=== PATIENT | male | born 1945 | race Caucasian/White ===

== ENCOUNTER → 2017-07-02 07:41 | Outpatient (CLI) | payer MEDICARE, OTHER ==
[2012-06-04 12:15] VITALS: BMI 24.4
== END | disposition home or self-care (01) ==
LOC: D.US 07:41
DX: I70.213 Atherosclerosis of native arteries of extremities with intermittent claudication, bilateral legs (principal); I71.4 Abdominal aortic aneurysm, without rupture; R09.89 Other specified symptoms and signs involving the circulatory and respiratory systems

== ENCOUNTER → 2017-12-27 07:13 | Outpatient (CLI) | payer MEDICARE, OTHER ==
[2012-06-04 12:15] VITALS: BMI 24.4
== END | disposition home or self-care (01) ==
LOC: D.CT 07:13
DX: I71.4 Abdominal aortic aneurysm, without rupture (principal)

== ENCOUNTER → 2018-01-01 09:29 | Outpatient (CLI) | payer MEDICARE, OTHER ==
[2012-06-04 12:15] VITALS: BMI 24.4
== END | disposition home or self-care (01) ==
LOC: D.MRI 09:29
DX: K86.9 Disease of pancreas, unspecified (principal)

== ENCOUNTER 2018-01-11 07:26 | Outpatient (CLI) | payer MEDICARE, OTHER ==
[~2018-01-11] VITALS: Ht 182.9 cm; Wt 75.5 kg
[2018-01-11 08:20] LABS: APTT 25.9 SECONDS (22.8-39.4)
[2018-01-11 08:21] LABS: BASOPHILS 0.2 % (0-2); EOSINOPHILS 2.6 % (0-7); HEMOGLOBIN 14.4 g/dL (13.5-17.5); IMMATURE GRANULOCYTES 0.2 % (0-5); INR 1.06 (0.85-1.17); MCHC 35.1 g/dL (31.0-37.0); MCV 96.9 fL (80.0-100.0); MEAN PLATELET VOLUME 9.4 fL (7.4-10.4); MONOCYTES 9.5 % (2-11); NEUTROPHILS 71.5 % (40-80); PLATELET COUNT 168 10x3/uL (130-400); PROTIME 13.4 SECONDS (11.6-15.0); RBC 4.23 10x6/uL (4.20-6.10); RDW 13.1 % (11.5-14.5); WBC 5.8 10x3/uL (4.8-10.8)
[2018-01-11 08:22] LABS: CALC OSMOLALITY 284 mosm/kg (275-300); CARBON DIOXIDE 28.6 mmol/L (21.0-32.0); CHLORIDE - SERUM 106 mmol/L (98-107); GLUCOSE 104 mg/dL (74-106); POTASSIUM - SERUM 4.6 mmol/L (3.5-5.1); SODIUM 142 mmol/L (136-145); UREA NITROGEN 18 mg/dL (7-18); eGFR NON AFRICAN AMERICAN 78 mL/min (90-120)
[2018-01-11] MEDS ORDERED: CRESTOR40 MG PO (09:00)
[2018-01-11] MEDS ORDERED: FLOMAX0.4 MG PO (09:00)
[2018-01-11] MEDS ORDERED: OMEPRAZOLE20 M1 PO (09:01)
[2018-01-11 09:09] VITALS: BP 147/64; Ht 182.9 cm; Wt 75.5 kg
== END 2018-01-11 14:10 | disposition home or self-care (01) ==
LOC: D.OPS 07:26 → D.SP 10:00 → D.OPS 14:10
PROVIDERS: Specialist
DX: K86.9 Disease of pancreas, unspecified (principal); I71.4 Abdominal aortic aneurysm, without rupture; I70.203 Unspecified atherosclerosis of native arteries of extremities, bilateral legs; Z01.812 Encounter for preprocedural laboratory examination

== ENCOUNTER 2018-01-22 05:27 | Outpatient (CLI) | payer MEDICARE, OTHER ==
[~2018-01-22 05:27] MED LIST: CRESTOR40 MG PO; FLOMAX0.4 MG PO; OMEPRAZOLE20 M1 PO
[2018-01-22 06:46] LABS: BASOPHILS 0.3 % (0-2); EOSINOPHILS 2.6 % (0-7); HEMATOCRIT 39.4 % (42.0-54.0); HEMOGLOBIN 13.5 g/dL (13.5-17.5); IMMATURE GRANULOCYTES 0.1 % (0-5); LYMPHOCYTES 11.6 % (15-50); MCH 33.3 pg (26.0-34.0); MCHC 34.3 g/dL (31.0-37.0); MEAN PLATELET VOLUME 9.4 fL (7.4-10.4); MONOCYTES 10.5 % (2-11); NEUTROPHILS 74.9 % (40-80); PLATELET COUNT 176 10x3/uL (130-400); RBC 4.06 10x6/uL (4.20-6.10); RDW 13.1 % (11.5-14.5)
[2018-01-22 07:07] LABS: CALC OSMOLALITY 283 mosm/kg (275-300); CALCIUM 10.2 mg/dL (8.5-10.1); CARBON DIOXIDE 28.8 mmol/L (21.0-32.0); CHLORIDE - SERUM 107 mmol/L (98-107); CREATININE - SERUM 0.9 mg/dL (0.6-1.3); GLUCOSE 102 mg/dL (74-106); POTASSIUM - SERUM 4.7 mmol/L (3.5-5.1); SODIUM 142 mmol/L (136-145); UREA NITROGEN 16 mg/dL (7-18); eGFR NON AFRICAN AMERICAN 88 mL/min (90-120)
[2018-01-22 07:12] VITALS: BP 152/64; BMI 22.5
[2018-01-22 07:19] LABS: APTT 25.9 SECONDS (22.8-39.4); INR 1.08 (0.85-1.17); PROTIME 13.6 SECONDS (11.6-15.0)
== END 2018-01-22 14:20 | disposition home or self-care (01) ==
LOC: D.OPS 05:27 → D.SP 08:00 → D.OPS 14:20
PROVIDERS: General Practice
DX: K86.9 Disease of pancreas, unspecified (principal); I71.4 Abdominal aortic aneurysm, without rupture; Z01.812 Encounter for preprocedural laboratory examination

== ENCOUNTER → 2018-09-17 10:30 | Outpatient (CLI) | payer MEDICARE, OTHER | END | disposition home or self-care (01) | LOC: D.US 09:30 | DX: I65.23 Occlusion and stenosis of bilateral carotid arteries (principal) ==

== ENCOUNTER → 2019-03-14 08:36 | Outpatient (CLI) | payer MEDICARE, OTHER | END | disposition home or self-care (01) | LOC: D.CT 08:36 | PROVIDERS: ATTEND Internal Medicine Cardiovascular Disease | DX: I71.4 Abdominal aortic aneurysm, without rupture (principal) ==

== ENCOUNTER 2019-05-26 10:36 | Inpatient (IN) | payer MEDICARE, OTHER ==
[~2019-05-26] VITALS: Ht 182.9 cm; Wt 73.5 kg
--- NOTE | ~2019-05-26 | OP ---
PATIENT NAME: IRAM MOSLEY MEDICAL RECORD: [id number] :45 LOCATION:D.CVI D.CV03 ADMISSION DATE:05/28/19 SURGEON: EVAN WHITE MD DATE OF OPERATION: 05/28/2019 SURGEON: Evan White MD SPECIAL EDUCATION TEACHING ASSISTANT: Gal Cameron MD ANESTHESIA: General, Dr. Omalley. OPERATION PERFORMED: 1. Endovascular stent repair of abdominal aortic aneurysm. 2. Endovascular repair with deployment of an aortobiiliac endograft, 10949. 3. Percutaneous access and closure of the femoral artery, +[id number]. 4. Angioplasty of the right external iliac artery utilizing an 8 x 40 angioplasty balloon. PREOPERATIVE DIAGNOSIS: Abdominal aortic aneurysm without rupture, ICD-10 code 171.4. POSTOPERATIVE DIAGNOSIS: Large abdominal aortic aneurysm. INDICATION FOR OPERATION: Enlarging abdominal aortic aneurysm. FINDINGS OF THE OPERATION: 1. Large abdominal aortic aneurysm. 2. The left renal artery stenosis. 3. Stenosis right external iliac artery. FLUOROSCOPY TIME: 31.19 minutes. CONTRAST: 179 mL. ESTIMATED BLOOD LOSS: Less than [address] Cameron participated in the entire procedure and accessed the right groin percutaneously with Perclose devices and left femoral artery with a 7-Iranian sheath. He also closed the right femoral artery and angioplastied the right external iliac artery. He also assisted in deployment of the device. DESCRIPTION OF PROCEDURE: After informed consent, adequate preoperative medication evaluation, the patient was brought to the operating room, placed on the table in the supine position. After induction of general endotracheal anesthesia and application of appropriate monitoring devices, the chest, abdomen, and both legs were prepped and draped in sterile field, utilizing Betadine scrub, alcohol, and Betadine solution. A Betadine-impregnated drape was also used. Utilizing ultrasound guidance, the right groin was accessed and placement of a 6-Iranian sheath. Subsequently, 2 Perclose devices were deployed and exchange made for an 8-Iranian on the ipsilateral side. The contralateral side was cannulated with the 7-Iranian sheath. Exchange were made for bilateral OPERATIVE REPORT [id number] IRAM MOSLEY stiff wires. The exchange from Glidewire to Endologix stiff wires were exchanged through the catheters. An Endologix 28 x 100 x 16 x40 AFX2 bifurcated device was loaded onto the stiff wire and advanced to the contralateral wire. It was then advanced and snared and brought through the contralateral side. The introducer sheath was then advanced under fluoroscopy until the distal limbs were above the aortic bifurcation, releasing the limbs from the graft. The entire system was pulled down on to the aortic bifurcation. Deployment of the main body was performed utilizing the control handle. Attention was then turned toward deployment of the contralateral limb by pulling the yellow limb cover then advancing the pigtail catheter over the contralateral wire until the tip made contact with the wire lock and released the wire. Next, the ipsilateral limb was deployed by pinning the inner core and retracting the AFX introducer sheath. Suprarenal endograft was then advanced and deployed. It was a 34 x 100. It was placed just below the right renal artery, which was the most caudal. The delivery system was then removed from the AFX introducer. The endograft was then ballooned utilizing a 12 x 40 mm balloon. A final arteriogram demonstrated good placement of the grafts and no endoleak. The Perclose was tightened on the ipsilateral side and the knots advanced. A third Perclose was then placed over the retained wire. An arteriogram demonstrated stenosis in the external iliac artery below the graft. This was angioplastied with an 8 x 40 balloon with a good result. An arteriogram from the contralateral side was made in the right common iliac artery with wide open flow through the external iliac artery into the profunda and superficial femoral arteries. The Angio-Seal was then deployed in the left groin with good hemostasis. The patient was given a calculated dose of protamine to reverse the heparin. Hemostasis was achieved. Sterile dressings were applied. The patient tolerated the procedure well and transferred to the CV ICU in satisfactory condition. TRANSINT:[id number] Voice Confirmation ID: [id number] DOCUMENT ID: [id number] EVAN WHITE MD CC: [id number] DICTATION DATE: 05/28/19 1127 BANK VAULT ATTENDANT: 05/28/19 1319 ADM IN [place] [id number] [place] [address]
--- NOTE | 2019-05-26 11:08 | NUR ---
WILSON APPT: TEMP 98.0; O2 98%, P70, R18, BP174/71 LEFT; BP 164/62 RIGHT
[2019-05-26] MEDS ORDERED: [UNRECOGNIZED DRUG - REMARK] INJ (11:55)
--- NOTE | 2019-05-26 12:07 | NUR ---
KATIE NOTE: NEGRITA BURGESS AT DR. WHITE'S OFFICE NOTIFIED ABG'S CALCIUM 1.39.
[2019-05-26 12:24] LABS: BASOPHILS 0.2 % (0-2); HEMOGLOBIN 12.3 g/dL (13.5-17.5); IMMATURE GRANULOCYTES 0.2 % (0-5); LYMPHOCYTES 22.2 % (15-50); MCH 31.9 pg (26.0-34.0); MCHC 34.2 g/dL (31.0-37.0); MCV 93.5 fL (80.0-100.0); MEAN PLATELET VOLUME 8.6 fL (7.4-10.4); NEUTROPHILS 62.4 % (40-80); RBC 3.85 10x6/uL (4.20-6.10); WBC 5.5 10x3/uL (4.8-10.8)
[2019-05-26 12:26] LABS: PLATELET COUNT 213 10x3/uL (130-400)
[2019-05-26 12:37] LABS: ALBUMIN 3.4 g/dL (3.4-5.0); ANION GAP 10.5 mmol/L (8-16); APPEARANCE HAZY (CLEAR); BACTERIA FEW /hpf (NONE SEEN); BILIRUBIN NEGATIVE (NEGATIVE); BILIRUBIN - TOTAL 0.3 mg/dL (0.2-1.3); CALCIUM 10.2 mg/dL (8.5-10.1); CARBON DIOXIDE 29.1 mmol/L (21.0-32.0); COLOR YELLOW (YELLOW); CREATININE - SERUM 1.1 mg/dL (0.6-1.3); EPITHELIAL CELLS 0-5 /hpf (0-5); GLUCOSE NEGATIVE (NEGATIVE); KETONE NEGATIVE (NEGATIVE); NITRITE NEGATIVE (NEGATIVE); POTASSIUM - SERUM 3.6 mmol/L (3.5-5.1); PROTEIN NEGATIVE (NEGATIVE); PROTEIN - SERUM 7.5 g/dL (6.4-8.2); UROBILINOGEN NORMAL (NORMAL); WHITE CELLS - URINE 0-5 /hpf (0-5)
[2019-05-26 12:45] LABS: APTT 27.4 SECONDS (22.8-39.4); INR 1.11 (0.85-1.17); PROTIME 13.8 SECONDS (11.6-15.0)
[2019-05-28] VITALS (50 sets, daily range): BP systolic 86–168; BP diastolic 27–454; BMI 24.7; BMI 22.0
[2019-05-28 08:24] LABS: APPEARANCE HAZY (CLEAR); BILIRUBIN NEGATIVE (NEGATIVE); COLOR YELLOW (YELLOW); GLUCOSE NEGATIVE (NEGATIVE); KETONE NEGATIVE (NEGATIVE); NITRITE NEGATIVE (NEGATIVE); PROTEIN TRACE mg/dL (NEGATIVE); UROBILINOGEN NORMAL (NORMAL)
[2019-05-28 08:25] LABS: BACTERIA FEW /hpf (NONE SEEN); EPITHELIAL CELLS OCC /hpf (0-5); MUCUS <1+ /lpf (NONE SEEN); RED CELLS - URINE 0-5 /hpf (0-5); WHITE CELLS - URINE RARE /hpf (0-5)
--- NOTE | 2019-05-28 13:50 | NUR ---
PLACED ON BEDPAN PER REQUEST
--- NOTE | 2019-05-28 14:22 | OP ---
PATIENT NAME: IRAM MOSLEY MEDICAL RECORD: [id number] :45 LOCATION:DKOLE D.CV03 ADMISSION DATE:05/28/19 SURGEON: TOBY MARK MD DATE OF OPERATION: 05/28/2019 SURGEON: Toby Mark MD PROCEDURE IN DETAIL: At the beginning of this procedure, ultrasound was used to obtain common femoral artery access bilaterally using micropuncture technique. On the left, easy access was obtained and a 7-Mosotho sheath was inserted, but on the right the micropuncture needle initially went in a side-branch requiring the use of fluoroscopy, and after the micropuncture sheath was placed eventually a Glidewire instead of the normal J-wire prior to placing the ProGlides for pre-deployment. In placing the ProGlides, the initial medial device would not easily pull back over the posterior calcification, but eventually both medial and the lateral ProGlide were deployed. At the conclusion of the case, both ProGlides were closed over a wire, but there was still bleeding, so a third ProGlide was deployed without difficulty. All 3 ProGlides were locked down and iliac arteriogram was performed revealing stenosis at the closure site. From left groin, a crossing catheter was used. The right iliac was selected and a wire was placed through the lesion, then dilatation first. Using a 6-mm balloon, then an iliac angiogram revealing persistent stenosis at a side branch, so an 8-mm balloon was used with resultant good dilatation. The left side was closed with an Angio-Seal. TRANSINT:[id number] Voice Confirmation ID: [id number] DOCUMENT ID: [id number] TOBY MARK MD at 1422 CC: [id number] DICTATION DATE: 05/28/19 1234 GLOBAL ACCOUNT DIRECTOR: 05/28/19 1320 ADM IN [place] [id number] [place] [address]
--- NOTE | 2019-05-28 17:18 | MORECARE ---
CASE MANAGEMENT DISCHARGE SUMMARY PATIENT: IRAM MOSLEY RAY UNIT: [id number] ADM DATE: 05/28/19 AGE: 74 : 45 SEX: M [facility] AUTHOR: MARIANA ALVES PHYSICIAN: REFERRING PHYSICIAN: EVAN WHITE MD DATE OF SERVICE: 05/28/19 Discharge Plan Patient Name: IRAM MOSLEY [facility] [facility] 1945 Planned Disposition: Home Anticipated Discharge Date: Discharge Date: Expected LOS: Initial Reviewer: [email or web address] Initial Review Date: 05/28/2019 Generated: 05/28/19 6:17 pm DCPIA - Discharge Planning Initial Assessment Updated by [email or web address]: Nimo Horowitz on 05/28/19 5:17 pm * Is the patient Alert and Oriented? Yes * How many steps to enter\exit or inside your home? * PCP DR. Edin HUDSON * Pharmacy [facility] * Preadmission Environment Home with Family * ADLs Independent * Equipment Walker * List name and contact numbers for known caregivers / representatives who currently or will assist patient after discharge: BETTY MOSLEY - - [phone] * Verbal permission to speak to the caregivers and representatives has been obtained from the patient. Yes * Community resources currently utilized None * Additional services required to return to the preadmission environment? No * Can the patient safely return to the preadmission environment? Yes * Has this patient been hospitalized within the prior 30 days at any hospital? No Patient Name: IRAM MOSLEY Page [id number] at 1718 All edits/amendments must be made on the electronic document DICTATION DATE: 05/28/191716 DOCTOR OF PHARMACY: ADDY 05/28/191716 RPT#: [id number] CT DATE: STATUS: ADM IN [facility] [address] [place] [address] END OF REPORT
--- NOTE | 2019-05-28 17:25 | MORECARE ---
CASE MANAGEMENT DISCHARGE SUMMARY PATIENT: IRAM MOSLEY RAY UNIT: [id number] ADM DATE: 05/28/19 AGE: 74 : 45 SEX: M ROOM/BED: D[facility] AUTHOR: JOSELYN,DOC PHYSICIAN: REFERRING PHYSICIAN: EVAN WHITE MD DATE OF SERVICE: 05/28/19 Discharge Plan Patient Name: IRAM MOSLEY Facility: [facility]:[place] : 1945 Planned Disposition: Home Anticipated Discharge Date: Discharge Date: Expected LOS: Initial Reviewer: [email or web address] Initial Review Date: 05/28/2019 Generated: 05/28/19 6:24 pm Comments DCP- Discharge Planning Updated by [email or web address]: Nimo Horowitz on 05/28/19 4:[address] Patient Name: IRAM MOSLEY Admission Status: Elective Accout number: [id number] Admission Date: 05-28-2019 : 1945 Admission Diagnosis: Attending: EVAN WHITE Current LOS: 1 Anticipated DC Date: Planned Disposition: Home Primary Insurance: MEDICARE A & B Discharge Planning Comments:CM met with patient and spouse (Mariah) at bedside after explaining CM role and obtaining verbal consent. Patient lives at home with his Mariah and plans to return there upon discharge. Patient feels this would be a safe discharge. CM discussed availability / needs of home health and medical equipment. Patient denies any discharge needs at this time. Patient states he will have his drive him home upon discharge. CM will continue to follow and assist as needed with discharge planning / needs. Wafer Fabrication Operator: Nimo Horowitz DCPIA - Discharge Planning Initial Assessment Updated by [email or web address]: Nimo Horowitz on 05/28/19 5:17 pm * Is the patient Alert and Oriented? Yes * How many steps to enter\exit or inside your home? * PCP DR. Edin HUDSON * Pharmacy [facility] * Preadmission Environment Home with Family * ADLs Independent * Equipment Walker * List name and contact numbers for known caregivers / representatives who currently or will assist patient after discharge: MARIAH MOSLEY - - [phone] * Verbal permission to speak to the caregivers and representatives has been obtained from the patient. Yes * Community resources currently utilized None * Additional services required to return to the preadmission environment? No * Can the patient safely return to the preadmission environment? Yes * Has this patient been hospitalized within the prior 30 days at any hospital? No Last DP export: 05/28/19 4:18 pm Patient Name: IRAM MOSLEY Page [id number] at 1725 All edits/amendments must be made on the electronic document DICTATION DATE: 05/28/191723 BROOM MAKER: ADDY 05/28/191723 RPT#: [id number] DC DATE: STATUS: ADM IN [facility] [address] [place] [address] END OF REPORT
--- NOTE | 2019-05-28 19:10 | NUR ---
Received patient resting in bed with eyes closed, assessment completed per flowsheet. Patient AO x4, answers appropriately/follows instructions. S1/S2 noted NSR on telemetry, rythmic and regular. Breathing is shallow on 3L via NC with O2 sat 97%, lung sounds clear bilateral upper and mid with diminished lower. Abdomen is round/soft with bowel sounds active x4, non-tender. Criticore secured, clear/yellow urine noted. Bilateral groin incision dressing CDI, soft to palpation with no bruising noted. Upper pulses palpable with lower pulses weak, skin warm/dry with cap refill < 3 sec. METER TESTER in use for pain mgmt, Repositioned for comfort, see flowsheet for details. All VSS and will continue to monitor.
--- NOTE | 2019-05-28 23:00 | NUR ---
Reassessment completed per flowsheet, no changes noted from previous assessment. Upper pulses palpable with lower pulses weak, skin warm/dry with cap refill < 3 sec. Bilateral groin incision dressing CDI, no bleeding/bruising noted. BROACHING MACHINE SET UP OPERATOR in use, denies further needs. See flowsheet for details, all VSS and will continue to monitor.
[2019-05-29] VITALS (51 sets, daily range): BP systolic 89–146; BP diastolic 29–68
--- NOTE | 2019-05-29 02:49 | NUR ---
Reassessment completed per flowsheet, no changes noted from previous assessment. Bilateral groin incision dressing CDI, no bleeding/bruising noted. Upper pulses palpable with lower pulses weak, cap refill < 3 sec with skin warm/dry. Denies pain or other needs at this time, see flowsheet for details. All VSS and will continue to monitor.
[2019-05-29 06:25] LABS: CALC OSMOLALITY 277 mosm/kg (275-300); CALCIUM 8.3 mg/dL (8.5-10.1); CARBON DIOXIDE 27.5 mmol/L (21.0-32.0); CHLORIDE - SERUM 102 mmol/L (98-107); POTASSIUM - SERUM 4.1 mmol/L (3.5-5.1); SODIUM 136 mmol/L (136-145); UREA NITROGEN 21 mg/dL (7-18); eGFR NON AFRICAN AMERICAN 78 mL/min (90-120)
[2019-05-29 06:36] LABS: GLUCOSE 151 mg/dL (74-106)
[2019-05-29 06:42] LABS: HEMATOCRIT 25.6 % (42.0-54.0); HEMOGLOBIN 8.9 g/dL (13.5-17.5); MCH 31.6 pg (26.0-34.0); MCHC 34.8 g/dL (31.0-37.0); MCV 90.8 fL (80.0-100.0); MEAN PLATELET VOLUME 8.7 fL (7.4-10.4); RBC 2.82 10x6/uL (4.20-6.10); RDW 12.8 % (11.5-14.5); WBC 11.4 10x3/uL (4.8-10.8)
--- NOTE | 2019-05-29 07:00 | NUR ---
REC'D REPORT AND RESUMED CARE, AAO, VSS, CONTINUES ON PRESSORS, DENIES PAIN, OOB TO CHAIR WITH STAND BY ASSIST X2, TOLERATED TRANSFER WITHOUT DIFFICULTY, ASSESSMENT COMPLETED PER FLOWSHEET, AWAITING TO SEE MD, NO OTHER NEEDS AT THIS TIME, CALL LIGHT IN REACH
--- NOTE | 2019-05-29 09:00 | NUR ---
MORNING MEDS GIVEN PER JAN FLOWSHEET
--- NOTE | 2019-05-29 11:40 | NUR ---
DC'D MEGHA NITRO TITRATED DOWN TO 5 CC/HR/16.647 MCG/HR, PER DR MARK
--- NOTE | 2019-05-29 14:35 | NUR ---
CONTINUES TO SIT UP IN CHAIR, HERE FOR VISIT, NO NEEDS AT THIS TIME
--- NOTE | 2019-05-29 15:00 | NUR ---
NITRO AND CLEVEPREX DC'D, BP STABLE SEE FLOWSHEET, ASSESSMENT COMPLETED PER FLOWSHEET, NO ACUTE CHANGE FROM PREVIOUS
--- NOTE | 2019-05-29 16:30 | NUR ---
FRIENDS AT BEDSIDE, PATIENT REC'D NEWS OF OTHER GOOD FRIEND DYING TODAY, TEARFUL, EASILY CONSOLED, NO NEEDS A THIS TIME
--- NOTE | 2019-05-29 16:45 | NUR ---
AMBULATED 250 FEET WITH STAND BY ASSIST, TOELRATED WITHOUT DIFFICULTY
--- NOTE | 2019-05-29 17:00 | NUR ---
DINNER TRAY TO CHAIRSIDE, INDEPENDENT WITH SET UP AND EATING
--- NOTE | 2019-05-29 18:05 | NUR ---
BACK TO BED WITH ASSIST, TOLERATED TRANSFER WITHOUT DIFFICULTY
--- NOTE | 2019-05-29 19:26 | NUR ---
BEDSIDE SHIFT REPORT GIVEN BY DEPARTING RN. PT LAYING IN BED ASLEEP. AAOX4. PERRLA. DENIES ANY PAIN OR NEEDS AT THIS TIME. LEFT SUBCLAVIAN CENTRAL LINE SALINE LOCKED. BILATERAL GROIN DRESSINGS INTACT. RT SIDE GROIN DRESSING HAS QUARTER SIZED POCKET OF BLOOD IN DRESSING WITH SMALL BRUISING SURROUNDNIG IT. MARKED FOR GROWTH. BILATERAL PEDAL PULSES POSITIVE DOPPLER. ASSESSMENT COMPLETE. SEE FLOWSHEET FOR DETAILS.
--- NOTE | 2019-05-29 21:06 | NUR ---
HS MEDS GIVEN. REFUSED ANY AND ALL STOOL SOFTENERS. FRESH ICE WATER PROVIDED.
--- NOTE | 2019-05-29 22:54 | NUR ---
REASSESSMENT COMPLETE. NO NEW CHANGES NOTED. ASLEEP SHOWING NO SS OF DISTRESS. REPOSITIONS SELF. DENIES ANY PAIN OR NEEDS. VSS. SAFETY MEASURES IN PLACE. CBIR.
[2019-05-30] VITALS (27 sets, daily range): BP systolic 114–169; BP diastolic 43–114; Ht 182.9 cm; Wt 73.5 kg
--- NOTE | 2019-05-30 01:58 | NUR ---
CHG BATH GIVEN. LINENS CHANGED. TOLERATED WELL.
--- NOTE | 2019-05-30 03:23 | NUR ---
REASSESSMENT COMPLETE. VSS. PT LAYING IN BED ASLEEP. NO CHANGES NOTED IN PT CONDITION. SAFETY MEASURES IN PLACE. CBIR.
[2019-05-30 05:44] LABS: BASOPHILS 0.3 % (0-2); EOSINOPHILS 1.9 % (0-7); HEMATOCRIT 23.9 % (42.0-54.0); IMMATURE GRANULOCYTES 0.1 % (0-5); LYMPHOCYTES 16.3 % (15-50); MCH 31.3 pg (26.0-34.0); MCHC 33.5 g/dL (31.0-37.0); MEAN PLATELET VOLUME 8.9 fL (7.4-10.4); MONOCYTES 10.2 % (2-11); NEUTROPHILS 71.2 % (40-80); RBC 2.56 10x6/uL (4.20-6.10); RDW 13.3 % (11.5-14.5)
[2019-05-30 05:46] LABS: MCV 93.4 fL (80.0-100.0); PLATELET COUNT 132 10x3/uL (130-400); WBC 7.3 10x3/uL (4.8-10.8)
[2019-05-30 06:02] LABS: CALC OSMOLALITY 289 mosm/kg (275-300); CALCIUM 8.6 mg/dL (8.5-10.1); CHLORIDE - SERUM 107 mmol/L (98-107); GLUCOSE 123 mg/dL (74-106); POTASSIUM - SERUM 3.7 mmol/L (3.5-5.1); SODIUM 144 mmol/L (136-145); UREA NITROGEN 19 mg/dL (7-18); eGFR NON AFRICAN AMERICAN 78 mL/min (90-120)
--- NOTE | 2019-05-30 07:00 | NUR ---
REC'D REPORT AND RESUMED CARE, AAO, VSS, DENIES PAIN, RIGHT GROIN WITH FIFTY CENT SIZE BLOOD POOLING UNNDER OPSITE DRESSING, 6 INCH HEMATOMA NOTED, SOFT WHEN PALPATED, LEFT GROIN WITH MINX COLOSRE DEVICE, DRESSING CDI, B/L FEET DOPPLERED WITH + PULSES NOTED, ASSESSMENT COMPLETED PER FLOWSHEET, CALL LIGHT IN REACH, VOICES NO NEEDS AT THIS TIME
--- NOTE | 2019-05-30 07:30 | NUR ---
DRESSING CHANGE COMPLETED TO RIGHT GROIN, TEGADERM DRESSING PLACED OVER GAUZE
--- NOTE | 2019-05-30 08:00 | NUR ---
OOB TO CHAIR FOR BREAKFAST, TOLERATED TRANSFER WITHOUT DIFFICULTY
--- NOTE | 2019-05-30 10:15 | NUR ---
AMUBULATED WITH PT ASSIST, TOLERATED WITHOUT DYSPNEA, STABLE GAIT NOTED
--- NOTE | 2019-05-30 11:00 | NUR ---
REFUSED BATH, IN HOPES OF BEING DISCHARGED HOME TODAY
--- NOTE | 2019-05-30 11:12 | NUR ---
PC TO [facility], REVIEW OF RECORD BACK TO 2016, PATIENT DOES NOT HAVE ANY SCRIPTS FOR BLOOD PRESSURE MEDS, PATIENTS ALSO UNABLE TO FIND MEDCIATION BOTTLE AT HOME
--- NOTE | 2019-05-30 16:15 | NUR ---
UNIT # 1 PRBC INITIATED, VSS PT AAO, NO SIGNS OF DISTRESS
--- NOTE | 2019-05-30 18:20 | NUR ---
UNIT # 1 PRBC COMPLETED, LINE FLUSHED WITH 50 CC NS
--- NOTE | 2019-05-30 18:30 | NUR ---
UNIT #2 PRBC INTITATED, VSS, NO SIGNS OF DISTRESS NOTED
--- NOTE | 2019-05-30 19:23 | NUR ---
PT RECEIVED UP IN BEDSIDE CHAIR. NO S/S OF DISTRESS. VSS. RECEIVING SECOND OF 2 UNITS OF PRBC. TOLERATING WELL. NO NEEDS MADE KNOWN. CALL LIGHT IN REACH. WILL CONTINUE TO OBSERVE
--- NOTE | 2019-05-30 21:35 | NUR ---
PRBC TRANSFUSION COMPLETED. PT UP TO BATHROOM AND RETURNED TO BED. NO S/S OF DISTRESS. NO NEEDS MADE KNOWN. CALL LIGHT IN REACH. WILL CONTINUE TO OBSERVE.
[2019-05-31] VITALS (28 sets, daily range): BP systolic 113–187; BP diastolic 46–69
--- NOTE | 2019-05-31 00:05 | NUR ---
REASSESSMENT COMPLETED SEE FLOW SHEET. PT OVER FILLED URINAL WITH URNINE ON GOWN AND LINENS. LINENS CHANGED AND CHG BATH PROVIDED. PT TOLERATED WELL. PT IN BED AT THIS TIME. CALL LIGHT IN REACH. WILL CONTINUE TO OBSERVE.
--- NOTE | 2019-05-31 02:38 | NUR ---
B/P CONTINUOUSLY ABOVE PARAMETERS WITH PRM APPRESSOLINE GIVEN WITH NO CHANGES, PRN NITRO STARTED AT 0205. WILL CONTINUE TO OBSERVE.
--- NOTE | 2019-05-31 03:46 | NUR ---
PT RESTING WITH EYES CLOSED AND CHEST RISING. EASILY AWOKEN TO VERBAL STIMULI. REASSESSMENT COMPLETED. SEE FLOW SHEET. CONTINUES NITRO DRIP. WILL CONTINUE TO OBSERVE.
[2019-05-31 06:24] LABS: CALC OSMOLALITY 284 mosm/kg (275-300); CALCIUM 9.7 mg/dL (8.5-10.1); CARBON DIOXIDE 28.3 mmol/L (21.0-32.0); CHLORIDE - SERUM 105 mmol/L (98-107); GLUCOSE 126 mg/dL (74-106); POTASSIUM - SERUM 3.4 mmol/L (3.5-5.1); SODIUM 141 mmol/L (136-145); UREA NITROGEN 19 mg/dL (7-18); eGFR NON AFRICAN AMERICAN 78 mL/min (90-120)
--- NOTE | 2019-05-31 06:37 | NUR ---
DR MARK INFORMED OF PT STATUS. ORDER TO GIVE ANTIHYPERTENSIVE EARLY AND WILL ADJUST DURING AM ROUNDS.
[2019-05-31 06:39] LABS: BASOPHILS 0.1 % (0-2); EOSINOPHILS 2.2 % (0-7); IMMATURE GRANULOCYTES 0.3 % (0-5); LYMPHOCYTES 14.6 % (15-50); MCH 31.1 pg (26.0-34.0); MCHC 34.8 g/dL (31.0-37.0); MEAN PLATELET VOLUME 9.2 fL (7.4-10.4); NEUTROPHILS 73.8 % (40-80); RDW 14.5 % (11.5-14.5); WBC 7.8 10x3/uL (4.8-10.8)
[2019-05-31 06:40] LABS: HEMATOCRIT 32.5 % (42.0-54.0); HEMOGLOBIN 11.3 g/dL (13.5-17.5); MCV 89.5 fL (80.0-100.0); PLATELET COUNT 160 10x3/uL (130-400); RBC 3.63 10x6/uL (4.20-6.10)
--- NOTE | 2019-05-31 07:00 | NUR ---
REC'D UP IN CHAIR, VSS, RIGHT DP 2+, RT GROIN SITE W/ HEMATOMA- FIRM/BRUISING. DENIES PAIN OR DISCOMFORT AT THIS TIME.
--- NOTE | 2019-05-31 07:30 | NUR ---
ASSESSED. PLEASANT- WANTS TO EAT AND GO HOME.
--- NOTE | 2019-05-31 09:00 | NUR ---
IN AND UPDATED.
--- NOTE | 2019-05-31 11:00 | NUR ---
DR MARK IN- ORDERS REC'D.
[2019-05-31] MEDS ORDERED: HEMOCYTE PLUS C1 CAP PO (11:35)
[2019-05-31] MEDS ORDERED: ASPIRIN EC81 M1 PO (11:36)
[2019-05-31] MEDS ORDERED: LISINOPRIL2.5 MG PO (11:36)
[2019-05-31] MEDS ORDERED: LOPRESSOR25 MG PO (11:37)
--- NOTE | 2019-05-31 12:25 | NUR ---
LEFT CVL REMOVED- MANUAL PRESSURE HELD X 5 MIN AND DRSG APPLIED. CATHETER TIP INTACT, NO BRUISING/HEMATOMA, NO S/S INFECTION.
--- NOTE | 2019-05-31 13:20 | NUR ---
DISCHARGE INSTRUCTIONS GIVEN AND DC'D HOME VIA W/C ACCOMPANIED BY .
--- NOTE | 2019-06-02 08:50 | MORECARE ---
CASE MANAGEMENT DISCHARGE SUMMARY PATIENT: IRAM MOSLEY RAY UNIT: [id number] ADM DATE: 05/28/19 AGE: 74 : 45 SEX: M ROOM/BED: D.[facility] AUTHOR: JOSELYN,DOC PHYSICIAN: REFERRING PHYSICIAN: EVAN WHITE MD DATE OF SERVICE: 06/02/19 Discharge Plan Patient Name: IRAM MOSLEY Facility: [facility]:[place] : 1945 Planned Disposition: Home Anticipated Discharge Date: Discharge Date: 05/31/2019 Expected LOS: Initial Reviewer: [email or web address] Initial Review Date: 05/28/2019 Generated: 06/02/19 9:50 am DCP- Discharge Planning Updated by [email or web address]: Nimo Horowitz on 05/28/19 4:[address] Patient Name: IRAM MOSLEY Admission Status: Elective Accout number: [id number] Admission Date: 05-28-2019 : 1945 Admission Diagnosis: Attending: EVAN WHITE Current LOS: 1 Anticipated DC Date: Planned Disposition: Home Primary Insurance: MEDICARE A & B Discharge Planning Comments:CM met with patient and spouse (Mariah) at bedside after explaining CM role and obtaining verbal consent. Patient lives at home with his Mariah and plans to return there upon discharge. Patient feels this would be a safe discharge. CM discussed availability / needs of home health and medical equipment. Patient denies any discharge needs at this time. Patient states he will have his drive him home upon discharge. CM will continue to follow and assist as needed with discharge planning / needs. Ballet Dancer: Nimo Horowitz DCPIA - Discharge Planning Initial Assessment Updated by [id number]: Nimo Horowitz on 05/28/19 5:17 pm * Is the patient Alert and Oriented? Yes * How many steps to enter\exit or inside your home? * PCP DR. Edin HUDSON * Pharmacy [facility] * Preadmission Environment Home with Family * ADLs Independent * Equipment Walker * List name and contact numbers for known caregivers / representatives who currently or will assist patient after discharge: MARIAH MOSLEY - - [phone] * Verbal permission to speak to the caregivers and representatives has been obtained from the patient. Yes * Community resources currently utilized None * Additional services required to return to the preadmission environment? No * Can the patient safely return to the preadmission environment? Yes * Has this patient been hospitalized within the prior 30 days at any hospital? No Last DP export: 05/28/19 4:24 pm Patient Name: IRAM MOSLEY Page 07164 at 0850 All edits/amendments must be made on the electronic document DICTATION DATE: 06/02/1950 FUSION ANALYST: ADDY 06/02/19 0850 RPT#: [id number] DC DATE:05/31/19 STATUS: DIS IN [facility] [address] [place] [address] END OF REPORT
== END 2019-05-31 13:20 | disposition home or self-care (01) | DRG 269 ==
LOC: D.CVICU 05-28 05:00 → D.SDCHOLD 05-28 05:00 → D.CVICU 05-28 11:53
PROVIDERS: Thoracic Surgery (Cardiothoracic Vascular Surgery); ADMIT Internal Medicine Cardiovascular Disease; ATTEND Internal Medicine Cardiovascular Disease
PROC: 047 Lower Arteries, Dilation (ICD-10-PCS; 2019-05-28)
PROC: 04V03DZ Restriction of Abdominal Aorta with Intraluminal Device, Percutaneous Approach (ICD-10-PCS; principal; 2019-05-28 07:30)
DX: I71.4 Abdominal aortic aneurysm, without rupture (principal); D62 Acute posthemorrhagic anemia; I70.1 Atherosclerosis of renal artery; I77.1 Stricture of artery; I10 Essential (primary) hypertension; R00.1 Bradycardia, unspecified

== ENCOUNTER → 2019-06-04 13:40 | Outpatient (CLI) | payer MEDICARE, OTHER ==
[2019-05-30 10:20] VITALS: BMI 21.9
[~2019-06-04 13:40] MED LIST changes: +ASPIRIN EC81 M1 PO; +HEMOCYTE PLUS C1 CAP PO; +LISINOPRIL2.5 MG PO; +LOPRESSOR25 MG PO; +[UNRECOGNIZED DRUG - REMARK] INJ
[2019-06-04 14:23] LABS: CALC OSMOLALITY 281 mosm/kg (275-300); CHLORIDE - SERUM 104 mmol/L (98-107); GLUCOSE 121 mg/dL (74-106); POTASSIUM - SERUM 3.9 mmol/L (3.5-5.1); SODIUM 140 mmol/L (136-145); UREA NITROGEN 18 mg/dL (7-18); eGFR NON AFRICAN AMERICAN 78 mL/min (90-120)
[2019-06-04 14:30] LABS: HEMATOCRIT 33.6 % (42.0-54.0); HEMOGLOBIN 11.4 g/dL (13.5-17.5); MCH 31.7 pg (26.0-34.0); MCHC 33.9 g/dL (31.0-37.0); MCV 93.3 fL (80.0-100.0); MEAN PLATELET VOLUME 9.2 fL (7.4-10.4); RBC 3.6 10x6/uL (4.20-6.10); RDW 13.6 % (11.5-14.5); WBC 6.6 10x3/uL (4.8-10.8)
== END | disposition home or self-care (01) ==
LOC: D.LAB 13:40
PROVIDERS: ATTEND Thoracic Surgery (Cardiothoracic Vascular Surgery)
DX: Z98.890 Other specified postprocedural states (principal)

== ENCOUNTER 2019-11-04 08:28 | Outpatient (CLI) | payer MEDICARE, OTHER ==
[~2019-11-04] VITALS: Ht 182.9 cm; Wt 83.2 kg
[2019-11-04 09:12] VITALS: BP 167/73; Ht 182.9 cm; Wt 83.2 kg
[2019-11-04] MEDS ORDERED: LISINOPRIL5 MG PO (09:25)
--- NOTE | 2019-11-04 19:24 | NUR ---
IV REMOVED AT 1700
== END 2019-11-04 17:00 | disposition home or self-care (01) ==
LOC: D.OPS 08:28
PROVIDERS: ATTEND Internal Medicine Cardiovascular Disease
DX: I71.4 Abdominal aortic aneurysm, without rupture (principal)

== ENCOUNTER 2019-12-16 07:04 | Outpatient (CLI) | payer MEDICARE, OTHER ==
[~2019-12-16] VITALS: Ht 182.9 cm; Wt 83.2 kg
--- NOTE | ~2019-12-16 | HEMODYNAMI ---
PATIENT:IRAM MOSLEY MEDICAL RECORD: [id number] : 45 [id number] ADMISSION DATE: 12/16/19 Generatedon:12/16/201910:31 Patient name: IRAM MOSLEY Patient #: [id number] SSN: : 1945 Date of study: 12/16/2019 Page: Of Hemodynamic Procedure Report Patient Data Patient Demographics Procedure consent was obtained First Name: IRAM Gender: Male Last Name: DIMITRI : 1945 Middle Initial: RAY Age: 74 year(s) Patient #: [id number] Race: Unknown Additional ID: [id number] Contact details Address: [address] [place] [address] State: [place] City: [place] Zip code: [address] Past Medical History Allergies: No known allergies Admission Admission Data Admission Date: 12/16/2019 Admission Time: 7:04 Procedure Procedure Types Cath Procedure Peripheral Cath Diagnostic Procedure Abd/Extremity Renal Procedure Description Procedure Date Procedure Date: 12/16/2019 Procedure Start Time: 9:20 Procedure Staff Name Function Dean Purcell RT Scrub Iglesia Lee MD Performing Physician Anisa Nelson RN Nurse SLIME AGUIRRE RT Monitor Procedure Data Cath Procedure Fluoroscopy Diagnostic fluoroscopy Total fluoroscopy Time: time: 13.7 min 13.7 min Diagnostic fluoroscopy Total fluoroscopy dose: 506 dose: 506 mGy mGy Contrast Material Contrast Material Type Amount (ml) Isovue 300 85 Entry Location Entry Primary Successful Side Size Upsize Upsize Entry Closure Succes sful Closure Location (Fr) 1 (Fr) 2 (Fr) Remarks Device Remarks Femoral Right 6 Fr artery Long Femoral Right 6 Fr Mynx artery Short [employer] 6Fr/7Fr Diagnostic catheters Device Type Used For End Catheter Placement Merit ULTRA BOLUS FLUSH 5Fr 65CM catheter ([id number]) Angiodynamics SOS OMNI 2 NON B 5FR 65CM catheter ([id number]) Procedure Medications Medication Administration Route Dosage Heparin Flush Bag added to field 3 bags (1000units/500ml NS) Lidocaine 1% added to field 20 Versed I.V. 1 mg Fentanyl I.V. 50 mcg Heparin Bolus I.V. 5000 units Versed I.V. 1 mg Fentanyl I.V. 50 mcg Versed I.V. 1 mg Fentanyl I.V. 50 mcg Hydralizine I.V. 10 mg Fentanyl I.V. 50 mcg Versed I.V. 1 mg Hemodynamics Rest Heart Rate: 64 (bpm) Snapshots Pre Cath Intra NCS Post Cath Vital Signs Time Heart Resp SPO2 etCO2 NIBP (mmHg) Rhythm Pain Sedation Rate (ipm) (%) (mmHg) Status Level (bpm) 8:59:47 62 20 100 32.9 No Cuff NSR 0 (11) 10(A) , No pain 9:02:51 65 22 100 24.5 149/136(148) NSR 0 (11) 10(A) , No pain 9:07:50 62 17 100 29.8 Measuring NSR 0 (11) 10(A) , No pain 9:08:12 62 18 100 29.8 180/75(141) NSR 0 (11) 10(A) , No pain 9:12:45 60 20 100 29.1 175/67(142) NSR 0 (11) 10(A) , No pain 9:17:15 64 20 100 28.3 171/66(121) NSR 0 (11) 8(A) , No pain 9:20:50 64 20 100 30.6 162/74(130) NSR 0 (11) 8(A) , No pain 9:25:15 63 17 100 30.6 160/71(127) NSR 0 (11) 8(A) , No pain 9:29:39 67 17 100 23 162/70(129) NSR 0 (11) 8(A) , No pain 9:34:03 65 16 100 0 166/73(136) NSR 0 (11) 8(A) , No pain 9:38:29 63 16 100 10.7 175/69(132) NSR 0 (11) 8(A) , No pain 9:42:57 64 27 100 29.9 177/74(143) NSR 0 (11) 8(A) , No pain 9:47:26 64 17 100 30.6 169/67(129) NSR 0 (11) 8(A) , No pain 9:51:50 64 17 100 10.7 162/67(127) NSR 0 (11) 8(A) , No pain 9:56:16 64 34 100 23.7 172/69(138) NSR 0 (11) 8(A) , No pain 10:00:39 73 20 100 16 183/92(141) NSR 0 (11) 8(A) , No pain 10:05:05 72 21 100 0 192/89(150) NSR 0 (11) 8(A) , No pain 10:08:28 77 22 100 27.5 199/90(148) NSR 0 (11) 8(A) , No pain 10:12:41 82 20 100 26.8 196/84(144) NSR 0 (11) 8(A) , No pain 10:17:08 83 20 100 12.2 184/88(132) NSR 0 (11) 8(A) , No pain 10:21:32 80 11 100 25.2 184/78(122) NSR 0 (11) 8(A) , No pain 10:26:02 83 24 100 16 164/71(125) NSR 0 (11) 8(A) , No pain Medications Time Medication Route Dose Verified Delivered Reason Notes Ef fectiveness by by 9:16:11 Heparin Flush added 3 Iglesia Parekh used for Bag to bags Rosa Lee procedure (1000units/500ml field MD AVILEZ NS) 9:16:24 Lidocaine 1% added 20ml Iglesia Parekh for local to vial Rosa Lee anesthetic field MD AVILEZ 9:17:07 Versed I.V. 1 mg Iglesia Lange for sedation Rosa Nelson RN, MD 9:17:19 Fentanyl I.V. 50 Iglesia Lange for sedation mcg Rosa Nelson RN, MD 9:26:37 Heparin Bolus I.V. 5000 Iglesia Lange Per units Rosa Nelson RN physician 9:32:27 Versed I.V. 1 mg Iglesia Lange for sedation Rosa Nelson RN, MD 9:32:34 Fentanyl I.V. 50 Iglesia Lange for sedation mcg Rosa Nelson RN, MD 9:57:14 Versed I.V. 1 mg Iglesia Lange for sedation Rosa Nelson RN, MD 9:57:22 Fentanyl I.V. [address] sedation [facility] Rosa Nelson RN, MD 10:09:42 Hydralizine I.V. 10 mg Iglesia Lange for Rosa sue MD 10:11:18 Fentanyl I.V. [address] sed[address] [facility] Rosa Nelson RN, MD 10:12:52 Versed I.V. 1 mg Iglesia Lange for sedation Rosa Nelson RN, MD Procedure Log Time Note 8:50:20 Anisa Nelson RN sent for patient. Start room use. 8:50:30 Time tracking: Regular hours (M-F 7:00 - 5:00) 8:50:35 Plan of Care:Hemodynamics will remain stable., Cardiac rhythm will remain stable., Comfort level will be maintained., Respiratory function will remain adequate., Patient/ family verbilizes understanding of procedure., Procedure tolerated without complication., Recovers from procedure without complications.. 8:50:39 Patient received from Outpatients to IR Alert and oriented. Tansferred to table in Supine position. 8:50:42 Signed procedure consent form obtained from patient. 8:50:44 Correct patient and procedure confirmed by team. 8:50:45 Full Disclosure recording started 8:50:46 - 8:50:50 Pre-procedure instructions explained to patient. 8:50:50 H&P Date Dictated: 12/16/2019 H&P Addendum completed by physician on day of procedure. (MUST COMPLETE FOR ALL OUTPATIENTS). 8:50:51 Pre-op teaching completed and patient verbalized understanding. 8:50:55 Use device set IR Diagnostic 8:50:56 ACIST Manifold (79535) opened to sterile field. 8:50:56 ACIST Hand Control (84728) opened to sterile field. 8:50:56 ACIST Syringe (57520) opened to sterile field. 8:50:57 Sterile Angiographic Pack opened to sterile field. 8:50:57 Bag Decanter () opened to sterile field. 8:50:58 Tegaderm 4 x 4 (1626W) opened to sterile field. 8:51:03 Family in waiting room. 8:51:05 Patient NPO since Midnight. 8:51:36 Patient allergic to No known allergies 8:52:54 Is patient on blood thinner?No 8:56:05 Patient diabetic? No. 8:56:06 - 8:56:08 ----Pre-sedation anethsthesia assessment.---- 8:56:11 Previous problem with sedation/anesthesia? No ? 8:56:13 Snore? Yes 8:56:14 Sleep apnea? No 8:56:15 Deviated septum? No 8:56:16 Opens mouth fully? Yes 8:56:17 Sticks out tongue? Yes 8:56:20 Airway obstruction? No ? 8:56:25 Dentures? Yes in tight 8:56:27 - 8:57:06 Pre procedure: right dorsailis pedis pulse 1+ Palpable, but thready & weak; easily obliterated 8:57:16 Pre procedure: right posterior tibial pulse Doppler 8:57:43 IV patent on arrival in right hand with 0.45%NaCl at O. 8:57:59 Right groin area was prepped with chlora-prep and draped in sterile fashion 8:58:01 - 8:58:27 MICROPUNCTURE 4FR Cook (H04349) opened to sterile field. 8:58:27 BENTSON 145cm wire (E80763) opened to sterile field. 8:58:28 TUBING Contrast Injection High Pressure ([id number]) opened to sterile field. 8:58:34 A ADOP ULTRA BOLUS FLUSH 5Fr 65CM catheter ([id number]) was opened t o sterile field. . 8:58:57 Vital chart was started 9:00:01 SHEATH 5FR [place] (HUP747) opened to sterile field. 9:00:13 Baseline sample Acquired. 9:06:54 - 9:14:34 --------ALL STOP TIME OUT------ 9:15:15 Right groin site verified by team. 9:15:33 3a) 45-59 Moderately reduced kidney function. 9:16:11 Heparin Flush Bag (1000units/500ml NS) 3 bags added to field was administered by Iglesia Lee MD; used for procedure; Verbal order read back and verified. 9:16:24 Lidocaine 1% 20ml vial added to field was administered by Iglesia berger MD; for local anesthetic; Verbal order read back and verified. 9:17:07 Versed 1 mg I.V. was administered by Anisa Nelson RN; for sedation; Verbal order read back and verified. 9:17:19 Fentanyl 50 mcg I.V. was administered by Anisa Nelson RN; for sedation ; Verbal order read back and verified. 9:19:27 Procedure started. 9:20:33 Local anesthetic to right femoral artery with Lidocaine 1% by Iglesia Lee MD.INITIAL ACCESS ONLY 9:24:25 SHEATH 6FR [place] (RSR01) opened to sterile field. 9:26:35 A 6 Fr Long sheath was inserted into the Right Femoral artery 9:26:37 Heparin Bolus 5000 units I.V. was administered by Anisa Omar RN; Per physician; Verbal order read back and verified. 9:30:03 A [employer] SOS OMNI 2 NON B 5FR 65CM catheter ([id number]) was advanced over the wire. 9:30:22 CHOICE PT Extra Support J 300cm guide wire ([id number]) opened to steril e field. 9:30:32 ROADRUNNER .035 145 glide wire (E70648) opened to sterile field. 9:32:27 Versed 1 mg I.V. was administered by Anisa Nelson RN; for sedation; Verbal order read back and verified. 9:32:34 Fentanyl 50 mcg I.V. was administered by Anisa Nelson RN; for sedation ; Verbal order read back and verified. 9:38:14 CHOICE PT Extra Support J 300cm guide wire ([id number]) opened to steril e field. 9:42:32 Inflate balloon Inflation number: 1 A NANOCROSS ELITE 4MM X 40 X 150 ([id number]) was prepped and advanced across the Undefined1 , then inflated. 9:49:[address] Place stent Inflation Number: 2 A HERCULINK ELITE 6 X 18 X 80 stent ([id number]) was prepped and advanced across the Undefined1 . The stent was deployed at 24 GUTIERREZ for 0:00 (min:sec) . 9:49:39 INFLATOR BasixTOUCH (GS2711) opened to sterile field. 9:57:14 Versed 1 mg I.V. was administered by Anisa Nelson RN; for sedation; Verbal order read back and verified. 9:57:22 Fentanyl 50 mcg I.V. was administered by Anisa Nelson RN; for sedation ; Verbal order read back and verified. 10:06:31 A 6 Fr Short sheath was inserted into the Right Femoral artery 10:06:49 Sheath removed intact; hemostasis achieved with Mynx [employer] 6Fr/7Fr to th e Right Femoral artery. 10:07:10 MYNX BUCCARO 6FR/7FR (ZM5115) opened to sterile field. 10:09:42 Hydralizine 10 mg I.V. was administered by Anisa Nelson RN; for hypertension; Verbal order read back and verified. 10:10:33 SHEATH 6FR [place] (TTO284) opened to sterile field. 10:10:48 Procedure ended.(Physican Out) 10:11:18 Fentanyl 50 mcg I.V. was administered by Anisa Nelson RN; for sedation ; Verbal order read back and verified. 10:11:49 Fluoroscopy time 13.70 minutes. 10:11:53 Fluoroscopy dose: 506 mGy 10:11:53 Flurop Dose total: 506 10:12:02 Contrast amount:Isovue 300 85ml. 10:12:12 Post right femoral artery:stable, clean and dry 10:12:15 Post procedure instruction explained to patient.Patient verbalizes understanding. 10:12:17 Procedure and supply charges have been captured, reviewed, submitted an d are correct. 10:12:52 Versed 1 mg I.V. was administered by Anisa Nelson RN; for sedation; Verbal order read back and verified. 10:29:39 End room use (Document Last) 10:29:57 Full Disclosure recording stopped Intervention Summary Intervention Notes Time ActionType Lesion and Equipment Used Action# Pressure Duration Attributes 9:42:32 Inflate Undefined1 NANOCROSS ELITE 1 0 00:00 balloon 4MM X 120 X 150 ([id number]) 9:49:02 Place stent Undefined1 HERCULINK ELITE 2 24 00:00 6 X 18 X 80 stent ([id number]) Device Usage Item Name Manufacture Quantity Catalog Number [facility] Minimal Lot# / Charge Number Stock Stock Serial# Code ACIST Syringe Acist Medical 1 47485 996455 297718 731012 20 (32443) Systems Inc ACIST Hand Acist Medical 1 10780 046198 500151 531674 5 Control (90496) Systems Inc ACIST Manifold Acist Medical 1 26889 683885 508522 757611 5 (63692) Systems Inc Bag Decanter Microtek 1 2001S 503901 22966 127137 5 (2001S) Medical Inc. Sterile Cardinal 1 [id number] 131830 364521 5 Angiographic Health Pack Tegaderm 4 x 4 3M 1 1626W 001680 420529 956539 5 (1626W) BENTSON 145cm Cook Medical 1 K30069 170759 446121 5 wire (P38808) MICROPUNCTURE Cook Medical 1 P09929 177414 666549 951518 5 4FR Cook (I35235) TUBING Contrast [facility] Medical 1 BCV523Y 684620 199970 719523 5 Injection High Pressure (LYO563I) ADOP ULTRA NextIO 1 [id number] 968328 373923 5 BOLUS FLUSH 5Fr 65CM catheter ([id number]) SHEATH 5FR Terumo 1 UJK641 822320 123167 370697 5 [place] (CLQ241) SHEATH 6FR Terumo 1 RSR01 066633 52100 101975 5 Destination (RSR01) Angiodynamics Angiodynamics 1 [id number] 752129 58041 617006 5 SOS OMNI 2 NON B 5FR 65CM catheter ([id number]) CHOICE PT Extra [place] 2 [id number] 625447 864551 293600 5 [id number] Support J 300cm Scientific guide wire ([id number]) ROADRUNNER .035 Cook Medical 1 Q31878 530760 307590 379918 5 145 glide wire (K08552) NANOCROSS ELITE Medtronic 1 [id number] 528760 923659 1 4MM X 120 X 150 ([id number]) HERCULINK ELITE Aleman 1 7158249-97 836871 935632 5 9311999 6 X 18 X 80 Vascular stent ([id number]) INFLATOR NextIO 1 AZ4521 212961 736468 037520 5 BasixTOUCH (VG5051) MYNX BUCCARO Access 1 WH1487 418695 958601 5 6FR/7FR (YJ8108) Closure SHEATH 6FR Terumo 1 LUC371 188158 193107 199006 40 [place] (GCO250) Signature Audit [place] Stage Time Signature Unsigned Intra-Procedure 12/16/2019 SLIME AGUIRRE RT 10:31:19 AM (R) [facility] [address] [facility] [place] [address]
[~2019-12-16 07:04] MED LIST changes: +LISINOPRIL5 MG PO
[2019-12-16 07:20] LABS: BASOPHILS 0.3 % (0-2); EOSINOPHILS 4.6 % (0-7); HEMATOCRIT 35.9 % (42.0-54.0); HEMOGLOBIN 12.1 g/dL (13.5-17.5); IMMATURE GRANULOCYTES 0.1 % (0-5); LYMPHOCYTES 16.4 % (15-50); MCHC 33.7 g/dL (31.0-37.0); MEAN PLATELET VOLUME 8.8 fL (7.4-10.4); MONOCYTES 8.8 % (2-11); NEUTROPHILS 69.8 % (40-80); PLATELET COUNT 171 10x3/uL (130-400); RBC 3.78 10x6/uL (4.20-6.10); RDW 14.3 % (11.5-14.5); WBC 6.7 10x3/uL (4.8-10.8)
[2019-12-16 07:27] LABS: ANION GAP 9.8 mmol/L (8-16); CALCIUM 9.4 mg/dL (8.5-10.1); CREATININE - SERUM 1.6 mg/dL (0.6-1.3); POTASSIUM - SERUM 4.8 mmol/L (3.5-5.1)
[2019-12-16 07:36] LABS: APTT 29.8 SECONDS (22.8-39.4); INR 1.12 (0.85-1.17); PROTIME 14.4 SECONDS (11.6-15.0)
[2019-12-16 07:47] VITALS: Ht 182.9 cm; Wt 83.2 kg
--- NOTE | 2019-12-16 11:09 | NUR ---
0067 SEE POST PROCEDURE CHECKLIST FOR VITAL SIGN TRENDS. AT SIDE.
--- NOTE | 2019-12-16 11:12 | NUR ---
111 DR. SOTO NOTIFIED OF HEMATOMA FORMATION BELOW INSERTION SITE FORMATION. ICE CAP TO SITE. SITE MARKED. PAIN MED GIVEN. MONITORING
--- NOTE | 2019-12-16 12:05 | NUR ---
2666 DR. BRITTANY FRANCO [facility] PROVIDED SUCTION JORGE L PROVIDED COOL CLOTH PROVIDED.
--- NOTE | 2019-12-16 12:11 | NUR ---
1210 YANIRA PHONED CHECKING ON PT. PT DOSING AFTER RECEIVING MORPHINE, HEMATOMA IS SOFTENED SINCE SANDBAG PLACEMENT.
--- NOTE | 2019-12-16 12:31 | NUR ---
1220 IN AND OUT CATH BY ARGENT[place] PINEDA RN WITH 500CC OUTPUT.
[2019-12-16 13:10] LABS: APPEARANCE HAZY (CLEAR); BILIRUBIN NEGATIVE (NEGATIVE); COLOR PINK (YELLOW); GLUCOSE NEGATIVE (NEGATIVE); KETONE NEGATIVE (NEGATIVE); NITRITE NEGATIVE (NEGATIVE); PROTEIN 2+ mg/dL (NEGATIVE); UROBILINOGEN NORMAL (NORMAL)
[2019-12-16 13:13] LABS: RED CELLS - URINE 25-50 /hpf (0-5)
[2019-12-16 13:14] LABS: BACTERIA FEW /hpf (NEGATIVE); EPITHELIAL CELLS NSEEN /hpf (0-5)
--- NOTE | 2019-12-16 15:19 | NUR ---
1515 REPORT GIVEN TO KINGSTON PINEDA RN
--- NOTE | 2019-12-16 15:23 | NUR ---
PT ROUNDED ON AT THIS TIME, R GROIN INSPECTED AND PALPATED AT THIS TIME, IS SOFT TO TOUCH, NO BRUISING NOTED TO SITE.
--- NOTE | 2019-12-16 15:40 | NUR ---
DR SOTO AT BEDSIDE AND STATES THAT PT ABLE TO GO HOME AT 1630.
--- NOTE | 2019-12-16 15:48 | NUR ---
PT ROUNDED ON AT THIS TIME, VSS. SITE INSPECTED, SOFT AND NO BRUISING NOTED AT SITE.
--- NOTE | 2019-12-16 16:20 | NUR ---
PT RESTING QUIETLY IN BED. DENIES NEEDS AT THIS TIME. DC INSTRUCTIONS GIVEN TO PT BY KINGSTON PINEDA RN. STATES UNDERSTANDING. DC'D IV CATH FULLY INTACT BY NEGRITA LANG. PT LEFT UNIT VIA AT 1641
--- NOTE | 2019-12-16 16:29 | NUR ---
SITE INSPECTED AT THIS TIME PRIOR TO DC, SITE IS SOFT, NO BRUISING OR BLOOD NOTED.
--- NOTE | 2019-12-16 16:30 | NUR ---
PT IV REMOVED AT THIS TIME, INTACT, NO REDNESS OR SWELLING NOTED AT SITE. PT DC INSTRUCTIONS REVIEWED, PT VERBALIZES UNDERSTANDING.
--- NOTE | 2019-12-16 16:40 | NUR ---
PT LEAVING OPS AT THIS TIME VIA WC, NAD NOTED.
== END 2019-12-16 16:41 | disposition home or self-care (01) ==
LOC: D.SP 07:04 → D.RAD 09:00 → D.SP 09:00
PROVIDERS: ATTEND Radiology Diagnostic Radiology
DX: I70.1 Atherosclerosis of renal artery (principal); I10 Essential (primary) hypertension; K21.9 Gastro-esophageal reflux disease without esophagitis; Z72.0 Tobacco use

== ENCOUNTER → 2020-05-18 07:54 | Outpatient (CLI) | payer MEDICARE, OTHER ==
[2019-12-16 07:47] VITALS: BMI 24.8
== END | disposition home or self-care (01) ==
LOC: D.CT 02-16 09:30
PROVIDERS: ATTEND Internal Medicine Cardiovascular Disease
DX: I71.4 Abdominal aortic aneurysm, without rupture (principal)

== ENCOUNTER → 2020-07-30 10:48 | Outpatient (CLI) | payer MEDICARE, OTHER ==
[2019-12-16 07:47] VITALS: BMI 24.8
== END | disposition home or self-care (01) ==
LOC: D.RAD 10:48
PROVIDERS: ATTEND Family Medicine
DX: R05 Cough (principal)

== ENCOUNTER → 2021-04-26 09:04 | Outpatient (CLI) | payer MEDICARE, OTHER ==
[2019-12-16 07:47] VITALS: BMI 24.8
[2021-04-26 09:40] LABS: ALBUMIN 3.2 g/dL (3.4-5.0); BILIRUBIN - DIRECT 0.11 mg/dL (0.00-0.30); BILIRUBIN - INDIRECT 0.19 mg/dL (0.00-1.00); BILIRUBIN - TOTAL 0.3 mg/dL (0.2-1.3); PROTEIN - SERUM 6.5 g/dL (6.4-8.2)
[2021-04-26 10:11] LABS: CREATININE - SERUM 1.3 mg/dL (0.6-1.3)
== END | disposition home or self-care (01) ==
LOC: D.CT 09:04
PROVIDERS: ATTEND Internal Medicine Cardiovascular Disease
DX: I71.4 Abdominal aortic aneurysm, without rupture (principal)